=== PATIENT | female | born 1990 | race American Indian/Alaskan Native ===

== ENCOUNTER 2017-03-02 18:33 | Emergency (ER) | payer OTHER ==
[2017-03-02 20:19] LABS: Hematocrit 40.4 % (30.3-42.9); Mean Corpuscular HGB Conc 32 % (30-34); Mean Corpuscular Hemoglobin 29 pg (28-32); Mean Corpuscular Volume 91 fl (79-97); Platelet Count 218 K/mm3 (140-440); Red Blood Count 4.45 M/mm3 (3.65-5.03); Red Cell Distribution Width 13.4 % (13.2-15.2); White Blood Count 6.3 K/mm3 (4.5-11.0)
[2017-03-02 20:40] LABS: Anion Gap 17 mmol/L; BUN/Creatinine Ratio 26.66; Blood Urea Nitrogen 16 mg/dL (7-17); Calcium 9.1 mg/dL (8.4-10.2); Carbon Dioxide 25 mmol/L (22-30); Chloride 102.3 mmol/L (98-107); Glucose 86 mg/dL (65-100); Potassium 3.7 mmol/L (3.6-5.0); Sodium 141 mmol/L (137-145)
[2017-03-02 21:23] LABS: Bilirubin,Urine NEG (Negative); Blood,Urine LG (Negative); Ketones,Urine TR mg/dL (Negative); Leukocyte Esterase,Urine TR (Negative); Mucus,Urine 3+ /HPF; Nitrite,Urine NEG (Negative); Urobilinogen,Urine < 2.0 mg/dL (<2.0)
[2017-03-02 22:27] VITALS: BP 122/76
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
== END 2017-03-02 22:33 | disposition home or self-care (01) ==
LOC: ED 18:33
DX: R07.89 Other chest pain (principal); M54.5 Low back pain; M54.6 Pain in thoracic spine; M25.519 Pain in unspecified shoulder; J45.909 Unspecified asthma, uncomplicated; V49.49XA Driver injured in collision with other motor vehicles in traffic accident, initial encounter; W22.10XA Striking against or struck by unspecified automobile airbag, initial encounter; Y93.89 Activity, other specified; Y99.8 Other external cause status; Y92.411 Interstate highway as the place of occurrence of the external cause
CPT/HCPCS: 36415; 71020; 80048; 81001; 81025; 84484; 85027; 93005; 93010; 99284

== ENCOUNTER 2017-05-08 21:00 | Emergency (ER) | payer SELFPAY ==
[2017-05-09 01:31] VITALS: BP 133/84
[2017-05-09] MEDS ORDERED: XYLOCAINE 1% MPF 5 mL ONE (02:41)
[2017-05-09] MEDS ORDERED: PERCOCET 5/325 PO ONE ×2 (02:50)
[2017-05-09] MEDS ORDERED: KEFLEX PO ONE ×2 (02:51→04:00)
[2017-05-09] MEDS ORDERED: PERCOCET 5/325 ONE (02:51)
[2017-05-09] MEDS ORDERED: KEFLEX ONE (02:51)
--- NOTE | 2017-05-09 02:52 | Emergency Department Report ---
- General Chief complaint: Skin/Abscess/Foreign Body Stated complaint: HEADACHE/NECK PAIN Time Seen by Provider: 05/09/17 02:08 Source: patient, family Mode of arrival: Ambulatory Limitations: No Limitations - History of Present Illness Initial comments: Patient here reports that she has a lump behind her right ear that's been getting worse over the last 2 days. She says she has a lump for 2 weeks and it was small but now it's getting bigger she reports pain 10 out of 10. Denies any fever or chills. Denies similar incident. Denies nausea or vomiting. Denies any pain inside her ear. Denies any drainage at ear. MD complaint: abscess/boil Onset/Timin -: week(s) Tetanus Up to Date: yes Location: face (behind the right ear) Severity: severe Severity scale (0 -10): 10 Quality: other (throbbing pain) Consistency: constant Improves with: immobilization, rest Worsens with: palpation, movement Context: other (unknown) Associated symptoms: denies other symptoms Treatments Prior to Arrival: OTC topical medication - Related Data Previous Rx's Medication Instructions Recorded Last Taken Type Cyclobenzaprine [Flexeril] 10 mg PO TID PRN #15 tablet 03/02/17 Unknown Rx Acetaminophen/Codeine [Tylenol 1 tab PO Q6H PRN #12 tab 05/09/17 Unknown Rx /Codeine # 3 tab] Cephalexin [Keflex] 500 mg PO Q8HR #21 cap 05/09/17 Unknown Rx Naproxen [Naprosyn TAB] 500 mg PO BID PRN #20 tablet 05/09/17 Unknown Rx Allergies Allergy/AdvReac Type Severity Reaction Status Date / Time No Known Allergies Allergy Unverified 03/02/17 19:51 Abscess Boil HPI - HPI Chief Complaint: Skin/Abscess/Foreign Body Stated Complaint: HEADACHE/NECK PAIN Time Seen by Provider: 05/09/17 02:08 Home Medications: Previous Rx's Medication Instructions Recorded Last Taken Type Cyclobenzaprine [Flexeril] 10 mg PO TID PRN #15 tablet 03/02/17 Unknown Rx Acetaminophen/Codeine [Tylenol 1 tab PO Q6H PRN #12 tab 05/09/17 Unknown Rx /Codeine # 3 tab] Cephalexin [Keflex] 500 mg PO Q8HR #21 cap 05/09/17 Unknown Rx Naproxen [Naprosyn TAB] 500 mg PO BID PRN #20 tablet 05/09/17 Unknown Rx Allergies/Adverse Reactions: Allergies Allergy/AdvReac Type Severity Reaction Status Date / Time No Known Allergies Allergy Unverified 03/02/17 19:51 ED Review of Systems ROS: Stated complaint: HEADACHE/NECK PAIN Other details as noted in HPI Comment: All other systems reviewed and negative Constitutional: denies: chills, fever ENT: ear pain (external ear pain) Respiratory: no symptoms reported Cardiovascular: denies: chest pain, palpitations, edema, syncope Gastrointestinal: denies: nausea, vomiting Skin: other (abscess to right ear) Neurological: denies: headache ED Past Medical Hx - Past Medical History Previous Medical History?: Yes Hx Asthma: Yes - Surgical History Past Surgical History?: No - Family History Family history: hypertension - Social History Smoking Status: Never Smoker Substance Use Type: Alcohol - Medications Home Medications: Home Medications Medication Instructions Recorded Confirmed Last Taken Type Cyclobenzaprine [Flexeril] 10 mg PO TID PRN #15 tablet 03/02/17 Unknown Rx Acetaminophen/Codeine [Tylenol 1 tab PO Q6H PRN #12 tab 05/09/17 Unknown Rx /Codeine # 3 tab] Cephalexin [Keflex] 500 mg PO Q8HR #21 cap 05/09/17 Unknown Rx Naproxen [Naprosyn TAB] 500 mg PO BID PRN #20 tablet 05/09/17 Unknown Rx ED Physical Exam - General Limitations: No Limitations General appearance: alert, in no apparent distress - Head Head exam: Present: atraumatic, normocephalic, normal inspection - Eye Eye exam: Present: normal appearance, PERRL, EOMI Pupils: Present: normal accommodation - ENT ENT exam: Present: normal exam, normal orophraynx, mucous membranes moist, TM's normal bilaterally, other (ear canal normal). Absent: normal external ear exam (right posterior ear with indurated and fluctuant area .tender to palpate.) - Neck Neck exam: Present: normal inspection, full ROM. Absent: tenderness, lymphadenopathy - Respiratory Respiratory exam: Present: normal lung sounds bilaterally. Absent: respiratory distress, chest wall tenderness - Cardiovascular Cardiovascular Exam: Present: regular rate, normal rhythm, normal heart sounds - Extremities Exam Extremities exam: Present: normal inspection, full ROM, normal capillary refill. Absent: tenderness, pedal edema, joint swelling, calf tenderness - Neurological Exam Neurological exam: Present: alert, oriented X3, normal gait, reflexes normal. Absent: motor sensory deficit - Psychiatric Psychiatric exam: Present: normal affect, normal mood - Skin Skin exam: Present: warm, dry, erythema, other (abscess right posterior ear) - Expanded Skin Exam Expanded Distribution of rash: face (right posterior ear) Description of rash: Present: size (dime-sized abscess to right posterior ear), tenderness, erythematous, swelling, fluctuant, indurated. Absent: discharge ED Course Vital Signs 05/08/17 05/09/17 21:48 01:30 Temperature 98.6 F Pulse Rate 77 67 Respiratory 16 18 Rate Blood Pressure 128/95 Blood Pressure 133/84 [Left] O2 Sat by Pulse 96 100 Oximetry - Reevaluation(s) Reevaluation #1: 05/09/17 02:59 Patient given Percocet 5/325 mg 2 tablets for pain. See procedure note for incision and drainage - I & D Right Ear Type of Procedure: Complex Site: right posterior ear Blade Size: 18-gauge needle I & D Procedure: betadine prep, sterile drapes applied, sterile dressing applied , no gauze wick placed ED Medical Decision Making - Medical Decision Making ED course: Patient with abscess to right posterior ear which was incision and drained. No need for packing. See procedure note for detail. Heart amount of pus expressed from area. Patient tolerated procedure well. TD vaccine is up-to -date. Patient given Percocet 5/325 2 tablets postprocedure for pain. She was also given Keflex 500 mg in emergency room. Patient discharged home in stable condition and informed to keep affected area clean and dry and apply warm compresses 3-4 times a day and to take antibiotic as prescribed. Patient discharged home to follow up with her primary care physician in 3 days. Charged home with family with prescription for Keflex and Tylenol 3 Critical care attestation.: If time is entered above; I have spent that time in minutes in the direct care of this critically ill patient, excluding procedure time. ED Disposition Clinical Impression: Abscess of right external ear, Encounter for incision and drainage procedure Cellulitis of external ear Qualifiers: Laterality: right Qualified Code(s): H60.11 - Cellulitis of right external ear Disposition: DC-01 TO HOME OR SELFCARE Is pt being admited?: No Does the pt Need Aspirin: No Condition: Stable Instructions: Abscess Incision and Drainage (ED), Cellulitis (ED) Additional Instructions: Please keep affected area clean and dry Take antibiotic as prescribed These do not drive or operate heavy machinery while taking in Tylenol 3 of this medication will cause drowsiness Please follow-up with your primary care physician in 3 days Prescriptions: Acetaminophen/Codeine [Tylenol /Codeine # 3 tab] 1 tab PO Q6H PRN #12 tab PRN Reason: Pain Cephalexin [Keflex] 500 mg PO Q8HR #21 cap Naproxen [Naprosyn TAB] 500 mg PO BID PRN #20 tablet PRN Reason: Pain Referrals: PRIMARY CARE, [Primary Care Provider] - 05/12/17 [facility] [Outside] - 05/12/17 Forms: Work/School Release Form(ED)
[2017-05-09] MEDS ORDERED: XYLOCAINE 1% MPF 5 mL INFILTRATI ONE (05:22)
== END 2017-05-09 03:13 | disposition home or self-care (01) ==
LOC: ED 21:00
DX: H60.01 Abscess of right external ear (principal); H60.11 Cellulitis of right external ear; J45.909 Unspecified asthma, uncomplicated
CPT/HCPCS: 99282